=== PATIENT | female | born 1995 | race Caucasian/White ===

== ENCOUNTER 2016-06-10 09:21 | Day surgery (SDC) | payer BC ==
[~2016-06-10 09:21] MED LIST: Buffered Lidocaine 1% SYR 3ML* 3 ML/SYR SYRINGE INTRADERM ONE; Dexamethasone IV* 4 MG/ML 1 ML (4 MG) IV SLOW PU ONE; Dexamethasone IV* 4 MG/ML 1 ML (4 MG) ONE; Famotidine IV* 10 MG/ML 2 ML (20 mg) IV ONE; Famotidine IV* 10 MG/ML 2 ML (20 mg) ONE; Sodium Citrate/Citric Acid* 15 ML UDC ONE; Sodium Citrate/Citric Acid* 15 ML UDC PO ONE
[2016-06-10 09:43] LABS: UR Preg Internal Control QC Line Present
[2016-06-10] MEDS ORDERED: Midazolam* 1 MG/ML 2 ML VIAL (2 MG) ONE (10:28)
[2016-06-10] MEDS ORDERED: fentaNYL* 50 MCG/ML 2 ML VIAL (100 MCG VIAL) ONE (10:28)
[2016-06-10] MEDS ORDERED: Propofol* 10 MG/ML 20 ML BTL IV PUSH ONE (10:29)
[2016-06-10] MEDS ORDERED: Ondansetron INJ* 2 MG/ML VIAL ONE (10:29)
[2016-06-10] MEDS ORDERED: Lidocaine 2% PF * 5 ML VIAL ONE (10:43)
[2016-06-10] MEDS ORDERED: DiMENhydriNATE IV* 50 MG/ML VIAL IV PUSH PRN (11:14)
[2016-06-10] MEDS ORDERED: fentaNYL* 50 MCG/ML 2 ML VIAL (100 MCG VIAL) IV PRN (11:14)
[2016-06-10 11:33] VITALS: BP 114/68
[2016-06-10] MEDS ORDERED: HYDROcodone/ACET. 7.5/325 LIQ* 15 ML UDC ONE (11:36)
--- NOTE | 2016-06-10 20:47 | OP ---
OPERATIVE REPORT: DATE OF OPERATION: 06/10/16 DATE OF : 89 SURGEON: Dk Brian MD CUSTOMER PRICING MANAGER: None. ANESTHESIA: General. PRE-OP DIAGNOSIS: Chronic tonsillitis. POST-OP DIAGNOSIS: Chronic tonsillitis. OPERATIVE PROCEDURE: Tonsillectomy. ESTIMATED BLOOD LOSS: Minimal. SPECIMENS: Right and left tonsils to Pathology. DESCRIPTION OF PROCEDURE: This is a 20-year-old woman who has had chronic tonsillitis for the past year or so and the decision was made to remove her tonsils on 06/10/16. The patient was brought to the operating room and general anesthesia was introduced and oral endotracheal tube was placed. The table was turned. Time- out was performed. A McIvor mouth gag was used to facilitate exposure of the oropharynx. The right tonsil was grasped with a straight Allis forceps, retracted medially and dissected free of its fossa with a Coblation device at a setting of 7 and 3. There was minimal blee ding. The left tonsil was removed in an identical fashion, again with minimal bleeding. Once the t onsils were removed, the superior and inferior pole regions were then prophylactically cauterized wi th bipolar function. The mouth gag was then let down for a minute. It was opened again. There was no evidence of active bleeding. An orogastric tube was passed into the stomach and stomach contents were evacuated. The patient was then returned to the care of the anesthesiologist, extubated witho ut difficulty and delivered to the PACU in stable condition. [id number]/[facility] #: [id number]
== END 2016-06-10 12:06 | disposition home or self-care (01) ==
LOC: OR 09:21
PROVIDERS: ATTEND Otolaryngology
DX: J35.01 Chronic tonsillitis (principal)
CPT/HCPCS: 81025; 88304; A9270-GY; J1100; J2250; J2405; J2704; J3010